=== PATIENT | female | born 1950 | race Caucasian/White ===

== ENCOUNTER 2017-05-14 11:27 | Outpatient (RCR) | payer OTHER ==
[~2017-05-14] VITALS: Ht 165.1 cm; Wt 78.8 kg
[~2017-05-14 11:27] MED LIST: ASPI-1267 PO; ASPI81TA94 PO; CHOL100052 PO; CHOL200022 PO; CHOL400T29 PO; DOC100 GT; DOCU-416 PO; FENO134C5 PO; FENO135C PO; FLU45SYR17 IM; FLU60SYR30 IM ONLY; GLUC100026 PO; GLUCOSAMINE; HYDR-2966 PO; LOR5 PO; METH1TAB65 PO; MULT-1335 PO; NIAC1TBM PO; OXYC-865 PO; POTA15TA PO; RAMI10CA62 PO; RAMI5CAP53 PO; SILV20CR2 TP; SIMV-44 PO; SIMV-54 PO; STOPPED ASA; TAM4 PO; TAMO20TA24 PO
[2017-05-14 11:42] VITALS: BP 112/64
[2017-05-14 11:47] LABS: PLATELET COUNT, AUTOMATED 226 K/uL (150-450)
--- NOTE | 2017-05-14 19:03 | ONCOLOGY FOLLOW UP NOTE ---
EVENT DATE: May 14, 2017 DIAGNOSES 1. Stage IA ([id number]) right invasive ductal carcinoma. 2. Osteoarthritis. 3. Osteopenia. 4. Prediabetes on diet control. 5. Hypertension. 6. Hypercholesterolemia. CHIEF COMPLAINT The patient is here today for followup of her right breast cancer. ONCOLOGY HISTORY The patient is a 65-year-old woman who had a hysterectomy in the past. The patient is doing very well currently. She is tolerating tamoxifen very well except for mild hot flashes. PRESENTATION Abnormal screening mammogram done on June 16, 2014 which showed a small focal area of increased density in the lateral portion of the right breast. Additional views on ultrasound showed hypoechoic nodule at 10 o'clock on the right breast. DIAGNOSTIC EVALUATION MRI of the breasts bilaterally done on July 03, 2014 showed suspicious lesion at 10 o'clock, right breast. PROCEDURE 1. Ultrasound guided core biopsy done on July 17, 2014. 2. Right wire-localization lumpectomy and right sentinel lymph node biopsy done July 27, 2014. PATHOLOGY The core biopsy was 0.7 to 1.5 cm in length, while the lumpectomy specimen showed a small nodule, 0.4 cm in the greatest dimension. Pathology was positive for invasive ductal carcinoma, grade I, ER positive 98.3%, [place] negative , Her2/kanchan 1+ by immunohistochemistry, which is negative. Oncotype DX testing showed a recurrent score result of 17, which is low risk. Three sentinel lymph nodes came back negative for metastases. STAGE Stage IA ([id number]). TREATMENT The patient was started on adjuvant hormonal therapy with tamoxifen on September 01, 2014. HISTORY OF PRESENT ILLNESS Patient is here today for follow up of her breast cancer, on tamoxifen adjuvant treatment. She is doing fine currently and she is totally asymptomatic. PAST MEDICAL HISTORY 1. Right breast cancer. 2. Osteoarthritis. 3. Bronchitis. 4. Type 2 diabetes on diet control. 5. Hypercholesterolemia. 6. Hypertension. PAST SURGICAL HISTORY 1. Tonsillectomy in 1957. 2. Tubal ligation in 1987. 3. Hysterectomy, vaginal, 1996. 4. Resection of cutaneous lymphoma 1997. 5. Surgical micro fracture, right knee, 2004. 6. Lymphocytoma cutis in 2008. 7. Stereotactic right breast biopsy for benign lesion in 2008. 8. Micro fracture of right knee with repair in 2010. 9. Removal of renal stone with stent placement in 2011. 10. Parathyroidectomy in 2011. 11. Fracture of left wrist in 2012. 12. Right breast biopsy July 17, 2014. 13. Right breast wire localization lumpectomy and right sentinel lymph node biopsy done on July 27, 2014. SOCIAL HISTORY The patient is . She has a son and daughter. 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 Denies any abuse of alcohol or drugs. She is smoking less than a pack a day for thirty years. FAMILY HISTORY Mother had liver cancer at the age of 82. Paternal grandfather had skin cancer and lymphoma. Sister with breast cancer at the age of sixty-four. Four first- line paternal cousins with breast cancer in their forties. Daughter of male paternal cousin with inflammatory breast cancer in her thirties. CURRENT MEDICATIONS 1. Baby aspirin 81 mg twice daily. 2. Ramipril 10 mg daily. 3. Glucosamine sulfate 1000 mg twice daily. 4. Hydrochlorothiazide 25 mg twice daily. 5. Potassium citrate 50 mEq daily. 6. Simvastatin 40 mg daily. 7. Tamoxifen 20 mg daily. ALLERGIES No known drug allergies. REVIEW OF SYSTEMS CONSTITUTIONAL: Patient has some hot flashes. HEENT: Ears: No tinnitus or hearing problem. Nose: No nasal discharge or epistaxis. Throat: No sore throat or mouth ulcers. Eyes: No diplopia or visual changes. RESPIRATORY: No shortness of breath. No cough, expectoration or hemoptysis. CARDIOVASCULAR: No chest pain, orthopnea, or paroxysmal nocturnal dyspnea (PND) . No edema. No palpitations. GASTROINTESTINAL: No nausea or vomiting. No diarrhea or constipation. No change in bowel movements. No heartburn or swallowing difficulties. No abdominal pain. No jaundice. No hematemesis, melena or rectal bleeding. GENITOURINARY: No hematuria or dysuria. MUSCULOSKELETAL: She has pain in her knees. NEUROLOGICAL: No tingling or numbness in the hands or feet. No headaches or convulsions. HEMATOLOGIC/LYMPHATIC: No bleeding or easy bruising. No weakness or fatigue. No enlarged lymph nodes. SKIN: No skin rash or lumps. PSYCHIATRIC: No anxiety or depression. PHYSICAL EXAMINATION GENERAL: Looks stable. Well-developed, well-nourished, and in no acute distress. VITAL SIGNS: Blood pressure 112/64, pulse 88 per minute, respirations 16 per minute, temperature 97, pulse ox 90% on room air. HEENT: Head: Atraumatic. No sinus tenderness to palpation. Eyes: No icterus or conjunctivitis. Mouth and throat: No oral thrush or mucositis. NECK: Supple. No cervical or supraclavicular lymphadenopathy. LUNGS: Clear to auscultation and percussion bilaterally. HEART: Regular rate and rhythm. No gallops, murmurs, clicks or rubs. ABDOMEN: Soft and lax. No tenderness. No hepatosplenomegaly. No masses. EXTREMITIES: No cyanosis, clubbing or edema. LYMPHATICS: No peripheral lymphadenopathy. NEUROLOGICAL: Conscious, alert and oriented times three. No focal motor or sensory deficits. PSYCHIATRIC: Mood and affect appear normal. SKIN: No skin rash, bruise or purpuric eruption. DIAGNOSTIC DATA CBC showed white count 7.3, hemoglobin 14.6, hematocrit 42, platelets 226,000. Chem panel totally normal except AST 55, ALT 83. Other parameters are normal. Potassium is 3.3. ASSESSMENT 1. Stage IA (pT1a pN0 cM0) right invasive ductal carcinoma status post wide localization lumpectomy and right sentinel lymph node biopsy done July 27, 2014 after core needle biopsy of the right breast mass done July 17, 2014. Final pathology was positive for 0.4 cm right breast nodule, grade 1/3 with negative margins. Three sentinel lymph nodes were negative for metastasis. ER positive , 98.3%, NV negative. HER2/kanchan was negative by immunohistochemistry. Oncotype DX testing showed recurrence score of 17, which is low risk. Patient started adjuvant hormonal therapy with tamoxifen 20 mg daily on September 01, 2014 and aromatase inhibitors were not prescribed because the patient could not afford the cost of the drug. Patient is tolerating treatment very well and she is doing very well currently. I am planning to see her again in four months with CBC, chem panel, CA 27-29 and DEXA scan at that time. 2. Osteopenia involving the lumbar spine, but the femoral neck and the left hip were normal. Her T score of the lumbar spine was -1.9. I am planning to repeat her DEXA scan with her next visit. 3. Vitamin D deficiency on vitamin D supplement, 4000 units daily. 4. Osteoarthritis of the knees, mainly the right knee. PLAN 1. Continue tamoxifen 20 mg daily. 2. Patient to return in four months with CBC, chem panel and CA 27-29 and DEXA scan. 3. Continue vitamin D 4000 units daily. 4. Patient to contact us for any new concerns or complaints. MTDD
== END 2017-05-15 09:11 | disposition home or self-care (01) ==
LOC: SPU 11:27
PROVIDERS: ATTEND Internal Medicine Hematology
DX: Z85.3 Personal history of malignant neoplasm of breast (principal); M85.88 Other specified disorders of bone density and structure, other site; E55.9 Vitamin D deficiency, unspecified; M17.11 Unilateral primary osteoarthritis, right knee; R73.03 Prediabetes; I10 Essential (primary) hypertension; E78.00 Pure hypercholesterolemia, unspecified; F17.210 Nicotine dependence, cigarettes, uncomplicated
CPT/HCPCS: 36415; 82040; 82247; 82310; 82374; 82435; 82565; 82947; 84075; 84132; 84155; 84295; 84450; 84460; 84520; 85025; 99212

== ENCOUNTER 2017-09-17 09:53 | Outpatient (RCR) | payer OTHER ==
[2017-09-17 10:11] VITALS: BP 127/96
[2017-09-17 10:15] LABS: PLATELET COUNT, AUTOMATED 228 K/uL (150-450)
--- NOTE | 2017-09-17 11:50 | RADIOLOGY IMAGING REPORT ---
FACILITY: [facility] PATIENT NAME: Melina Ceballos : 1950 MR: [id number] V: [id number] EXAM DATE: ORDERING PHYSICIAN: STEFANI AYON TECHNOLOGIST: Location: [facility] [place] Patient: Melina Ceballos : 1950 Visit/Account:[id number] Date of Sevice: 09/17/2017 DEXA Scan Clinical history: Osteopenia. Comparison: DEXA scan from 09/30/2016. LUMBAR SPINE: The bone mineral density (BMD) measured from L1-L4 correlates with a Z-score -0.9 and a T-score of - 2.0 which is osteopenia as defined by the World Health Organization. The corresponding risk of fract ure in the lumbar spine is increased compared with a young adult reference population. This value herrera s decrease by 1.1 % since the prior study. More than 5% change is considered significant. HIP: Bone mineral density (BMD) measured in the left femoral neck region correlates with a Z-score 0.4 and a T-score of -0.7 which is normal as defined by the World Health Organization. The corresponding risk of fracture in the hip is Not increased compared with a young adult reference population. The to gunjan hip value has increased by 0.6 % since the prior study. More than 5% change is considered signif icant. Bone mineral density (BMD) measured in the Femoral Neck region measures 0.934 g/cm2. IMPRESSION: 1. Lumbar spine: Osteopenia. There has been increased in the bone mineral density since the previou s exam. 2. Left femoral neck region: Normal. There has been increase in the bone mineral density of the tot al hip since the previous exam. 3. Femoral Neck: Bone Mineral Density is 0.934 g/cm2 The next DEXA scan of this patient should include the following sites: L1-L4 and the left hip. FRAX? WHO Fracture Risk Assessment Tool link: <http://www.shef.ac.uk/FRAX/tool.jsp?[email or web address]> PLEASE NOTE: 1) The World Health Organization defines low BMD as follows: T-score Normal > -1 Osteopenia < -1 and > -2.5 Osteoporosis < -2.5 without fractures Established osteoporosis < -2.5 with fractures 2) In general, you may wish to consider: Diagnosis Treatment Follow-up DEXA Normal BMD Prevention 2-3 years Osteopenia Prevention/therapy 1-2 years Osteoporosis Therapy Yearly 3) Fracture risk estimated from the T-score is more accurate for vertebral fractures (often spontane ous) than for hip fractures. Report Dictated By: Naeem Seymour at 09/17/2017 11:41 AM Report E-Signed By: Naeem Seymour at 09/17/2017 11:47 AM WSN:[email or web address]
--- NOTE | 2017-09-17 16:29 | ONCOLOGY FOLLOW UP NOTE ---
EVENT DATE: September 17, 2017 DIAGNOSES 1. Stage IA ([id number]) right invasive ductal carcinoma. 2. Osteoarthritis. 3. Osteopenia. 4. Prediabetes on diet control. 5. Hypertension. 6. Hypercholesterolemia. CHIEF COMPLAINT The patient is here today for followup of her right breast cancer. ONCOLOGY HISTORY The patient is a 65-year-old woman who had a hysterectomy in the past. The patient is doing very well currently. She is tolerating tamoxifen very well except for mild hot flashes. PRESENTATION Abnormal screening mammogram done on June 16, 2014 which showed a small focal area of increased density in the lateral portion of the right breast. Additional views on ultrasound showed hypoechoic nodule at 10 o'clock on the right breast. DIAGNOSTIC EVALUATION MRI of the breasts bilaterally done on July 03, 2014 showed suspicious lesion at 10 o'clock, right breast. PROCEDURE 1. Ultrasound guided core biopsy done on July 17, 2014. 2. Right wire-localization lumpectomy and right sentinel lymph node biopsy done July 27, 2014. PATHOLOGY The core biopsy was 0.7 to 1.5 cm in length, while the lumpectomy specimen showed a small nodule, 0.4 cm in the greatest dimension. Pathology was positive for invasive ductal carcinoma, grade I, ER positive 98.3%, [place] negative , Her2/kanchan 1+ by immunohistochemistry, which is negative. Oncotype DX testing showed a recurrent score result of 17, which is low risk. Three sentinel lymph nodes came back negative for metastases. STAGE Stage IA ([id number]). TREATMENT The patient was started on adjuvant hormonal therapy with tamoxifen on September 01, 2014. HISTORY OF PRESENT ILLNESS Patient is here today for follow up of her right breast cancer on adjuvant hormonal therapy with tamoxifen. She is doing fine currently except for hot flashes. She continues to have pain in her knees which is chronic, but stable. PAST MEDICAL HISTORY 1. Right breast cancer. 2. Osteoarthritis. 3. Bronchitis. 4. Type 2 diabetes on diet control. 5. Hypercholesterolemia. 6. Hypertension. PAST SURGICAL HISTORY 1. Tonsillectomy in 1957. 2. Tubal ligation in 1987. 3. Hysterectomy, vaginal, 1996. 4. Resection of cutaneous lymphoma 1997. 5. Surgical micro fracture, right knee, 2004. 6. Lymphocytoma cutis in 2008. 7. Stereotactic right breast biopsy for benign lesion in 2008. 8. Micro fracture of right knee with repair in 2010. 9. Removal of renal stone with stent placement in 2011. 10. Parathyroidectomy in 2011. 11. Fracture of left wrist in 2012. 12. Right breast biopsy July 17, 2014. 13. Right breast wire localization lumpectomy and right sentinel lymph node biopsy done on July 27, 2014. SOCIAL HISTORY The patient is . She has a son and daughter. 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 Denies any abuse of alcohol or drugs. She is smoking less than a pack a day for thirty years. FAMILY HISTORY Mother had liver cancer at the age of 82. Paternal grandfather had skin cancer and lymphoma. Sister with breast cancer at the age of sixty-four. Four first- line paternal cousins with breast cancer in their forties. Daughter of male paternal cousin with inflammatory breast cancer in her thirties. CURRENT MEDICATIONS 1. Baby aspirin 81 mg twice daily. 2. Ramipril 10 mg daily. 3. Glucosamine sulfate 1000 mg twice daily. 4. Hydrochlorothiazide 25 mg twice daily. 5. Potassium citrate 50 mEq daily. 6. Simvastatin 40 mg daily. 7. Tamoxifen 20 mg daily. ALLERGIES No known drug allergies. REVIEW OF SYSTEMS CONSTITUTIONAL: Patient has hot flashes. HEENT: Ears: No tinnitus or hearing problem. Nose: No nasal discharge or epistaxis. Throat: No sore throat or mouth ulcers. Eyes: No diplopia or visual changes. RESPIRATORY: No shortness of breath. No cough, expectoration or hemoptysis. CARDIOVASCULAR: No chest pain, orthopnea, or paroxysmal nocturnal dyspnea (PND) . No edema. No palpitations. GASTROINTESTINAL: No nausea or vomiting. No diarrhea or constipation. No change in bowel movements. No heartburn or swallowing difficulties. No abdominal pain. No jaundice. No hematemesis, melena or rectal bleeding. GENITOURINARY: No hematuria or dysuria. MUSCULOSKELETAL: She has pain in her knees which is chronic. NEUROLOGICAL: No tingling or numbness in the hands or feet. No headaches or convulsions. HEMATOLOGIC/LYMPHATIC: No bleeding or easy bruising. No weakness or fatigue. No enlarged lymph nodes. SKIN: No skin rash or lumps. PSYCHIATRIC: No anxiety or depression. PHYSICAL EXAMINATION GENERAL: Looks stable. Well-developed, well-nourished, and in no acute distress. VITAL SIGNS: Blood pressure 127/96, pulse 100 per minute, temperature 98.1, pulse ox 91% on room air. HEENT: Head: Atraumatic. No sinus tenderness to palpation. Eyes: No icterus or conjunctivitis. Mouth and throat: No oral thrush or mucositis. NECK: Supple. No cervical or supraclavicular lymphadenopathy. LUNGS: Clear to auscultation and percussion bilaterally. HEART: Regular rate and rhythm. No gallops, murmurs, clicks or rubs. ABDOMEN: Soft and lax. No tenderness. No hepatosplenomegaly. No masses. EXTREMITIES: No cyanosis, clubbing or edema. LYMPHATICS: No peripheral lymphadenopathy. NEUROLOGICAL: Conscious, alert and oriented times three. No focal motor or sensory deficits. PSYCHIATRIC: Mood and affect appear normal. SKIN: No skin rash, bruise or purpuric eruption. DIAGNOSTIC DATA CBC showed white count 5.4, hemoglobin 15.9, hematocrit 45, platelets 228,000. Chem panel totally normal except blood sugar 134, AST 43, potassium 2.8. Her CA 27-29 is pending. ASSESSMENT 1. Stage IA (pT1a pN0 cM0) right invasive ductal carcinoma status post wide localization lumpectomy and right sentinel lymph node biopsy done July 27, 2014 after core needle biopsy of the right breast mass done July 17, 2014. Final pathology was positive for 0.4 cm right breast nodule, grade 1/3 with negative margins. Three sentinel lymph nodes were negative for metastasis. ER was positive, 98.3%, [place] negative. HER2/kanchan was negative by immunohistochemistry. Oncotype DX testing showed recurrence score of 17, which is low risk. Patient started adjuvant hormonal therapy with tamoxifen 20 mg daily on September 01, 2014 and aromatase inhibitors were not prescribed because the patient could not afford the cost of the drug. Patient is tolerating treatment very well except for some hot flashes. She is currently in complete remission. I am planning to see her again in four months with CBC, chem panel and CA 27-29 at that time. 2. Hypokalemia from hydrochlorothiazide use for treatment of her hypertension. Patient did not have her potassium supplement for some time because of the change of her primary care physicians. I will refill her potassium tablets. 3. Vitamin D deficiency on vitamin D supplement, 4000 units daily. 4. Osteoarthritis of the knees, mainly the right knee. 5. Osteopenia of the lumbar spine, but the femoral neck and the left hip were normal. Her T-score of the lumbar spine was -1.9. Repeat DEXA scan on September 17, 2017 showed osteopenia, but the bone mineral density is increased since her previous scan. I am planning to continue the same treatment. PLAN 1. Continue tamoxifen 20 mg daily. 2. Patient to return in four months with CBC, chem panel and CA 27-29. 3. Check mammogram on December 25, 2017. 4. Continue vitamin D 4000 units daily. 5. Patient to contact us for any new concern or complaints. ROCIO
== END 2017-10-06 10:34 | disposition home or self-care (01) ==
LOC: SPU 09:53
PROVIDERS: ATTEND Internal Medicine Hematology
DX: C50.911 Malignant neoplasm of unspecified site of right female breast (principal); Z79.810 Long term (current) use of selective estrogen receptor modulators (SERMs); E87.6 Hypokalemia; E55.9 Vitamin D deficiency, unspecified; M17.0 Bilateral primary osteoarthritis of knee; M85.88 Other specified disorders of bone density and structure, other site; R73.03 Prediabetes; I10 Essential (primary) hypertension; E78.00 Pure hypercholesterolemia, unspecified
CPT/HCPCS: 36415; 77080; 82040; 82247; 82310; 82374; 82435; 82565; 82947; 84075; 84132; 84155; 84295; 84450; 84460; 84520; 85025; 86300; 99212

== ENCOUNTER → 2017-10-26 | Outpatient (CLI) | payer MEDICARE, OTHER ==
[~2017-10-26] MED LIST changes: +POTC540 PO
== END ==
LOC: LAB 13:58
PROVIDERS: ATTEND Emergency Medicine
DX: E78.5 Hyperlipidemia, unspecified (principal); E55.9 Vitamin D deficiency, unspecified; I10 Essential (primary) hypertension; R74.8 Abnormal levels of other serum enzymes
CPT/HCPCS: 36415; 82306; 82310; 82374; 82435; 82465; 82565; 82947; 83540; 83550; 83718; 84132; 84295; 84478; 84520

== ENCOUNTER → 2017-11-03 | Outpatient (CLI) | payer MEDICARE, OTHER ==
--- NOTE | 2017-11-03 16:17 | RADIOLOGY IMAGING REPORT ---
FACILITY: [facility] [place] PATIENT NAME: Melina Ceballos : 1950 MR: [id number] V: [id number] EXAM DATE: ORDERING PHYSICIAN: DAVE RYAN TECHNOLOGIST: Location: [facility] Patient: Melina Ceballos : 1950 Visit/Account:[id number] Date of Sevice: 11/03/2017 LIVER HISTORY: Elevated liver enzymes ADDITIONAL HISTORY: None. COMPARISON: Comparison made to prior chest CT on 09/11/2015. FINDINGS: Liver: Liver demonstrates homogenous increased echogenicity compatible with fatty infiltration. On p revious noncontrast CT scan the liver measured 40 Hounsfield units was which was borderline. I suspe ct there is been interval progression of steatosis since that time. There are at least five small cy sts in the liver, the largest measuring 2.2 cm maximum dimension. Largest measured hepatic cysts in August was 1.8 cm diameter centimeter dense slight interval enlargement. Gallbladder: Several tiny mobile stones are seen in the gallbladder. Gallbladder wall is normal. N egative sonographic Watson's sign. Common duct: 4.1 mm diameter. Pancreas: Pancreas unremarkable appearance. Right kidney: Right kidney morphologically normal and measures 10.6 cm in length. Upper abdominal aorta and IVC: Patent. Ascites: None visualized. IMPRESSION: Cholelithiasis Hepatic steatosis which is probably progressed since 2016. Multiple small hepatic cysts, possible slight interval enlargement since 2016.. Report Dictated By: Keith Huffman MD at 11/03/2017 3:56 PM Report E-Signed By: Keith Huffman MD at 11/03/2017 4:13 PM WSN:[email or web address]
== END ==
LOC: US 01:27
PROVIDERS: ATTEND Emergency Medicine
DX: K76.0 Fatty (change of) liver, not elsewhere classified (principal); Q44.6 Cystic disease of liver
CPT/HCPCS: 76705

== ENCOUNTER → 2017-12-17 | Outpatient (CLI) | payer MEDICARE, OTHER ==
[2017-12-17 09:55] LABS: LDL CHOLESTEROL 23 mg/dl
== END ==
LOC: LAB 09:03
PROVIDERS: ATTEND Emergency Medicine
DX: E78.5 Hyperlipidemia, unspecified (principal); K76.0 Fatty (change of) liver, not elsewhere classified
CPT/HCPCS: 36415; 82040; 82247; 82248; 82310; 82374; 82435; 82465; 82565; 82947; 83718; 84075; 84132; 84155; 84295; 84450; 84460; 84478; 84520

== ENCOUNTER 2018-01-14 11:30 | Outpatient (RCR) | payer MEDICARE, OTHER ==
[~2018-01-14 11:30] MED LIST changes: +CHOL200018 PO; -CHOL200022 PO; +RAMI10CA9 PO; -RAMI5CAP53 PO; +RAMI5CAP7 PO
[2018-01-14 11:55] LABS: PLATELET COUNT, AUTOMATED 242 K/uL (150-450)
[2018-01-14 12:39] VITALS: BP 133/72
--- NOTE | 2018-01-14 17:50 | ONCOLOGY FOLLOW UP NOTE ---
EVENT DATE: January 14, 2018 DIAGNOSES 1. Stage IA ([id number]) right invasive ductal carcinoma. 2. Osteoarthritis. 3. Osteopenia. 4. Prediabetes on diet control. 5. Hypertension. 6. Hypercholesterolemia. CHIEF COMPLAINT The patient is here today for followup of her right breast cancer. ONCOLOGY HISTORY The patient is a 67-year-old woman who had a hysterectomy in the past. The patient is doing very well currently. She is tolerating tamoxifen very well except for mild hot flashes. PRESENTATION Abnormal screening mammogram done on June 16, 2014 which showed a small focal area of increased density in the lateral portion of the right breast. Additional views on ultrasound showed hypoechoic nodule at 10 o'clock on the right breast. DIAGNOSTIC EVALUATION MRI of the breasts bilaterally done on July 03, 2014 showed suspicious lesion at 10 o'clock, right breast. PROCEDURE 1. Ultrasound guided core biopsy done on July 17, 2014. 2. Right wire-localization lumpectomy and right sentinel lymph node biopsy done July 27, 2014. PATHOLOGY The core biopsy was 0.7 to 1.5 cm in length, while the lumpectomy specimen showed a small nodule, 0.4 cm in the greatest dimension. Pathology was positive for invasive ductal carcinoma, grade I, ER positive 98.3%, UT negative, Her2/kanchan 1+ by immunohistochemistry, which is negative. Oncotype DX testing showed a recurrent score result of 17, which is low risk. Three sentinel lymph nodes came back negative for metastases. STAGE Stage IA ([id number]). TREATMENT The patient was started on adjuvant hormonal therapy with tamoxifen on September 01, 2014. HISTORY OF PRESENT ILLNESS Patient is here today for follow up of her right breast cancer on adjuvant hormonal therapy with tamoxifen. Patient is really doing very well currently. Apart from having arthritis with pain in her knees and hips, the patient does not have any other problem. PAST MEDICAL HISTORY 1. Right breast cancer. 2. Osteoarthritis. 3. Bronchitis. 4. Type 2 diabetes on diet control. 5. Hypercholesterolemia. 6. Hypertension. PAST SURGICAL HISTORY 1. Tonsillectomy in 1957. 2. Tubal ligation in 1987. 3. Hysterectomy, vaginal, 1996. 4. Resection of cutaneous lymphoma 1997. 5. Surgical micro fracture, right knee, 2004. 6. Lymphocytoma cutis in 2008. 7. Stereotactic right breast biopsy for benign lesion in 2008. 8. Micro fracture of right knee with repair in 2010. 9. Removal of renal stone with stent placement in 2011. 10. Parathyroidectomy in 2011. 11. Fracture of left wrist in 2012. 12. Right breast biopsy July 17, 2014. 13. Right breast wire localization lumpectomy and right sentinel lymph node biopsy done on July 27, 2014. SOCIAL HISTORY The patient is . She has a son and daughter. 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 Denies any abuse of alcohol or drugs. She is smoking less than a pack a day for thirty years. FAMILY HISTORY Mother had liver cancer at the age of 82. Paternal grandfather had skin cancer and lymphoma. Sister with breast cancer at the age of sixty-four. Four first- line paternal cousins with breast cancer in their forties. Daughter of male paternal cousin with inflammatory breast cancer in her thirties. CURRENT MEDICATIONS 1. Baby aspirin 81 mg twice daily. 2. Ramipril 10 mg daily. 3. Glucosamine sulfate 1000 mg twice daily. 4. Hydrochlorothiazide 25 mg twice daily. 5. Potassium citrate 50 mEq daily. 6. Simvastatin 40 mg daily. 7. Tamoxifen 20 mg daily. ALLERGIES No known drug allergies. REVIEW OF SYSTEMS CONSTITUTIONAL: No appetite or weight change. No fever, chills or sweating. No recent infection. HEENT: Ears: No tinnitus or hearing problem. Nose: No nasal discharge or epistaxis. Throat: No sore throat or mouth ulcers. Eyes: No diplopia or visual changes. RESPIRATORY: No shortness of breath. No cough, expectoration or hemoptysis. CARDIOVASCULAR: No chest pain, orthopnea, or paroxysmal nocturnal dyspnea (PND). No edema. No palpitations. GASTROINTESTINAL: No nausea or vomiting. No diarrhea or constipation. No change in bowel movements. No heartburn or swallowing difficulties. No abdominal pain. No jaundice. No hematemesis, melena or rectal bleeding. GENITOURINARY: No hematuria or dysuria. MUSCULOSKELETAL: She has pain in the knees and hips. NEUROLOGICAL: No tingling or numbness in the hands or feet. No headaches or convulsions. HEMATOLOGIC/LYMPHATIC: No bleeding or easy bruising. No weakness or fatigue. No enlarged lymph nodes. SKIN: No skin rash or lumps. PSYCHIATRIC: No anxiety or depression. PHYSICAL EXAMINATION GENERAL: Looks stable. Well-developed, well-nourished, and in no acute distress. VITAL SIGNS: Blood pressure 133/72, pulse 70 per minute, respirations 16 per minute, temperature 97.8, pulse ox 88% on room air. HEENT: Head: Atraumatic. No sinus tenderness to palpation. Eyes: No icterus or conjunctivitis. Mouth and throat: No oral thrush or mucositis. NECK: Supple. No cervical or supraclavicular lymphadenopathy. LUNGS: Clear to auscultation and percussion bilaterally. HEART: Regular rate and rhythm. No gallops, murmurs, clicks or rubs. ABDOMEN: Soft and lax. No tenderness. No hepatosplenomegaly. No masses. EXTREMITIES: No cyanosis, clubbing or edema. LYMPHATICS: No peripheral lymphadenopathy. NEUROLOGICAL: Conscious, alert and oriented times three. No focal motor or sensory deficits. PSYCHIATRIC: Mood and affect appear normal. SKIN: No skin rash, bruise or purpuric eruption. DIAGNOSTIC DATA CBC showed white count 5.8, hemoglobin 15.8, hematocrit 46, platelets 242,000. Chem panel is normal. 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 ASSESSMENT 1. Stage IA (pT1a pN0 cM0) right invasive ductal carcinoma status post wide localization lumpectomy and right sentinel lymph node biopsy done July 27, 2014 after core needle biopsy of the right breast mass done July 17, 2014. Final pathology was positive for 0.4 cm right breast nodule, grade 1/3 with negative margins. Three sentinel lymph nodes were negative for metastasis. ER was positive, 98.3%, UT negative. HER2/kanchan was negative by immunohistochemistry. Oncotype DX testing showed recurrence score of 17, which is low risk. Patient started adjuvant hormonal therapy with tamoxifen 20 mg daily on September 01, 2014 and aromatase inhibitors were not prescribed because the patient could not afford the cost of the drug. Patient is tolerating treatment very well except for some hot flashes. She is currently in complete remission. I am planning to see her again in four months with CBC, chem panel and CA 27-29. Her last CA 27-29 was normal at 25.7. 2. Hypokalemia from hydrochlorothiazide. Patient took potassium supplement for that. 3. Vitamin D deficiency, currently on vitamin D supplement, 4000 units daily. 4. Osteoarthritis of the knees, mainly the right knee. 5. Osteopenia of the lumbar spine, but the left hip and femoral neck were normal. Her T-score of the lumbar spine was -1.9. Repeat DEXA scan on September 17, 2017 showed osteopenia, but the bone mineral density is increased since the previous scan. We will continue the same treatment. PLAN 1. Continue tamoxifen 20 mg daily. 2. Patient to return in four months with CBC, chem panel and CA 27-29. 3. The patient is scheduled for her mammogram next week. 4. Continue vitamin D 4000 units daily. 5. Patient to contact us for any new concerns or complaints. LILLIED
== END 2018-02-24 08:36 | disposition home or self-care (01) ==
LOC: SPU 11:30
PROVIDERS: ATTEND Internal Medicine Hematology
DX: C50.911 Malignant neoplasm of unspecified site of right female breast (principal); Z79.810 Long term (current) use of selective estrogen receptor modulators (SERMs); E87.6 Hypokalemia; E55.9 Vitamin D deficiency, unspecified; M17.0 Bilateral primary osteoarthritis of knee; M85.88 Other specified disorders of bone density and structure, other site; R73.03 Prediabetes; I10 Essential (primary) hypertension; E78.00 Pure hypercholesterolemia, unspecified; E11.9 Type 2 diabetes mellitus without complications; F17.210 Nicotine dependence, cigarettes, uncomplicated; Z79.899 Other long term (current) drug therapy
CPT/HCPCS: 36415; 85025; 86300; G0463; 82040; 82247; 82310; 82374; 82435; 82565; 82947; 84075; 84132; 84155; 84295; 84450; 84460; 84520; 99212

== ENCOUNTER → 2018-01-21 | Outpatient (CLI) | payer MEDICARE, OTHER ==
--- NOTE | 2018-01-22 08:14 | RADIOLOGY IMAGING REPORT ---
FACILITY: [facility] - [place] PATIENT NAME: NEO VELIZ : [id number] MR: [id number] V: [id number] EXAM DATE: [id number] ORDERING PHYSICIAN: STEFANI AYON TECHNOLOGIST: Tamy Freitas PROCEDURE:BILATERAL DIGITAL SCREENING MAMMOGRAM WITH CAD ASSISTED INTERPRETATION & 3D TOMOSYNTHESIS COMPARISON:Prior mammograms 12/24/16, 08/22/16, 05/29/16, 08/03/15, 02/01/15. INDICATIONS:SCREENING FINDINGS: Dense heterogeneous fibroglandular tissue is seen throughout the breasts. The parenchymal pattern has remained stable allowing for difference in mammographic technique & patient positioning. Post surgical scaring in the upper outer quadrant of the Right breast from previous lumpectomy and skin thickening over the Right breast from prior radiation therapy again seen. There is a biopsy clip in the medial inferior portion of the Right breast. There is no evidence of malignant appearing mass, malignant appearing calcifications or other secondary sign of malignancy in either breast. DIAGNOSTIC CATEGORY 2--BENIGN FINDING. RECOMMENDATIONS: ROUTINE MAMMOGRAM AND CLINICAL EVALUATION. IMPRESSION: BIRADS 2: Benign finding. No significant abnormality is identified at this time. Dictated by: Imelda Kelly M.D. on 01/21/2018 at 15:55 Transcribed by: BRICE on 01/21/2018 at 16:09 Approved by: Imelda Kelly M.D. on 01/22/2018 at 8:12 [facility]
== END ==
LOC: MAMO 00:49
PROVIDERS: ATTEND Internal Medicine Hematology
DX: Z12.31 Encounter for screening mammogram for malignant neoplasm of breast (principal)
CPT/HCPCS: 77063; 77067

== ENCOUNTER 2018-05-20 09:49 | Outpatient (RCR) | payer MEDICARE, OTHER ==
[2018-05-20 09:55] VITALS: BP 121/71
[2018-05-20 10:11] VITALS: BP 121/71
[2018-05-20 10:13] LABS: PLATELET COUNT, AUTOMATED 249 K/uL (150-450)
--- NOTE | 2018-05-20 13:26 | [facility] ONCOLOGY NOTE ---
EVENT DATE: May 20, 2018 DIAGNOSES 1. Stage IA ([id number]) right invasive ductal carcinoma. 2. Osteoarthritis. 3. Osteopenia. 4. Prediabetes on diet control. 5. Hypertension. 6. Hypercholesterolemia. CHIEF COMPLAINT The patient is here today for followup of her right breast cancer. ONCOLOGY HISTORY The patient is a 67-year-old woman who had a hysterectomy in the past. The patient is doing very well currently. She is tolerating tamoxifen very well except for mild hot flashes. PRESENTATION Abnormal screening mammogram done on June 16, 2014 which showed a small focal area of increased density in the lateral portion of the right breast. Additional views on ultrasound showed hypoechoic nodule at 10 o'clock on the right breast. DIAGNOSTIC EVALUATION MRI of the breasts bilaterally done on July 03, 2014 showed suspicious lesion at 10 o'clock, right breast. PROCEDURE 1. Ultrasound guided core biopsy done on July 17, 2014. 2. Right wire-localization lumpectomy and right sentinel lymph node biopsy done July 27, 2014. PATHOLOGY The core biopsy was 0.7 to 1.5 cm in length, while the lumpectomy specimen showed a small nodule, 0.4 cm in the greatest dimension. Pathology was positive for invasive ductal carcinoma, grade I, ER positive 98.3%, SD negative, Her2/kanchan 1+ by immunohistochemistry, which is negative. Oncotype DX testing showed a recurrent score result of 17, which is low risk. Three sentinel lymph nodes came back negative for metastases. STAGE Stage IA ([id number]). TREATMENT The patient was started on adjuvant hormonal therapy with tamoxifen on September 01, 2014. HISTORY OF PRESENT ILLNESS Patient is here today for followup of her right breast cancer, on adjuvant hormonal therapy with tamoxifen. She has some hot flashes and pain in her knees but other than that her general condition is very good and stable. PAST MEDICAL HISTORY 1. Right breast cancer. 2. Osteoarthritis. 3. Bronchitis. 4. Type 2 diabetes on diet control. 5. Hypercholesterolemia. 6. Hypertension. PAST SURGICAL HISTORY 1. Tonsillectomy in 1957. 2. Tubal ligation in 1987. 3. Hysterectomy, vaginal, 1996. 4. Resection of cutaneous lymphoma 1997. 5. Surgical micro fracture, right knee, 2004. 6. Lymphocytoma cutis in 2008. 7. Stereotactic right breast biopsy for benign lesion in 2008. 8. Micro fracture of right knee with repair in 2010. 9. Removal of renal stone with stent placement in 2011. 10. Parathyroidectomy in 2011. 11. Fracture of left wrist in 2012. 12. Right breast biopsy July 17, 2014. 13. Right breast wire localization lumpectomy and right sentinel lymph node biopsy done on July 27, 2014. SOCIAL HISTORY The patient is . She has a son and daughter. 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 Denies any abuse of alcohol or drugs. She is smoking less than a pack a day for thirty years. FAMILY HISTORY Mother had liver cancer at the age of 82. Paternal grandfather had skin cancer and lymphoma. Sister with breast cancer at the age of sixty-four. Four first- line paternal cousins with breast cancer in their forties. Daughter of male paternal cousin with inflammatory breast cancer in her thirties. CURRENT MEDICATIONS 1. Baby aspirin 81 mg twice daily. 2. Ramipril 10 mg daily. 3. Glucosamine sulfate 1000 mg twice daily. 4. Hydrochlorothiazide 25 mg twice daily. 5. Potassium citrate 50 mEq daily. 6. Simvastatin 40 mg daily. 7. Tamoxifen 20 mg daily. ALLERGIES No known drug allergies. REVIEW OF SYSTEMS CONSTITUTIONAL: Patient has hot flashes. HEENT: Ears: No tinnitus or hearing problem. Nose: No nasal discharge or epistaxis. Throat: No sore throat or mouth ulcers. Eyes: No diplopia or visual changes. RESPIRATORY: No shortness of breath. No cough, expectoration or hemoptysis. CARDIOVASCULAR: No chest pain, orthopnea, or paroxysmal nocturnal dyspnea (PND). No edema. No palpitations. GASTROINTESTINAL: No nausea or vomiting. No diarrhea or constipation. No change in bowel movements. No heartburn or swallowing difficulties. No abdominal pain. No jaundice. No hematemesis, melena or rectal bleeding. GENITOURINARY: No hematuria or dysuria. MUSCULOSKELETAL: She has pain in the knees. NEUROLOGICAL: No tingling or numbness in the hands or feet. No headaches or convulsions. HEMATOLOGIC/LYMPHATIC: No bleeding or easy bruising. No weakness or fatigue. No enlarged lymph nodes. SKIN: No skin rash or lumps. PSYCHIATRIC: No anxiety or depression. PHYSICAL EXAMINATION GENERAL: Looks stable. Well-developed, well-nourished, and in no acute distress. VITAL SIGNS: Blood pressure 121/71, pulse 90 per minute, respirations 16 per minute, temperature 97.6, pulse ox 93% on room air. HEENT: Head: Atraumatic. No sinus tenderness to palpation. Eyes: No icterus or conjunctivitis. Mouth and throat: No oral thrush or mucositis. NECK: Supple. No cervical or supraclavicular lymphadenopathy. LUNGS: Clear to auscultation and percussion bilaterally. HEART: Regular rate and rhythm. No gallops, murmurs, clicks or rubs. ABDOMEN: Soft and lax. No tenderness. No hepatosplenomegaly. No masses. EXTREMITIES: No cyanosis, clubbing or edema. LYMPHATICS: No peripheral lymphadenopathy. NEUROLOGICAL: Conscious, alert and oriented times three. No focal motor or sensory deficits. PSYCHIATRIC: Mood and affect appear normal. SKIN: No skin rash, bruise or purpuric eruption. DIAGNOSTIC DATA CBC showed white count 6.9, hemoglobin 15.5, hematocrit 45.2, platelets 249,000. Chem panel is totally normal except chloride 111, BUN 19. 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 ASSESSMENT 1. Stage IA (pT1a pN0 cM0) right invasive ductal carcinoma status post wide localization lumpectomy and right sentinel lymph node biopsy done July 27, 2014, after core needle biopsy of the right breast mass done July 17, 2014. Final pathology was positive for 0.4 cm right breast nodule, grade 1/3 with negative margins. Three sentinel lymph nodes were negative for metastasis. ER was positive, 38.3%, SD negative. HER2/kanchan was negative by immunohistochemistry. Oncotype DX testing showed recurrent score of 17, which is low risk. Patient started adjuvant hormonal therapy with tamoxifen 20 mg daily on September 01, 2014, and aromatase inhibitors were not prescribed because of the cost and patient could not afford the rose of the drug. Patient really is doing very well with her treatment currently. Apart from having hot flashes, patient does not have any other problem. She is currently in complete remission. I am planning to see her again in four months with CBC, chem panel, CA 27-29. 2. Vitamin D deficiency, on vitamin D supplement 4000 units daily. 3. Osteoarthritis of the knees, mainly right knee. 4. Osteopenia of the lumbar spine but the left hip and femoral neck were normal. Her T-score of the lumbar spine was -1.9. Repeat DEXA scan on September 17, 2017, showed osteopenia but the bone mineral density has increased since the previous scan. We will continue the same treatment currently. PLAN 1. Continue tamoxifen 20 mg daily. 2. Patient to return in four months with CBC, chem panel and CA 27-29. 3. The patient to continue vitamin D 4000 units daily. 5. Patient to contact us for any new concerns or complaints. MTDD
[2018-07-26] MEDS ORDERED: SIMV-54 PO (09:34)
== END 2018-08-17 ==
LOC: SPU 09:49
PROVIDERS: ATTEND Internal Medicine Hematology
DX: C50.911 Malignant neoplasm of unspecified site of right female breast (principal); Z79.810 Long term (current) use of selective estrogen receptor modulators (SERMs); E87.6 Hypokalemia; E55.9 Vitamin D deficiency, unspecified; M17.0 Bilateral primary osteoarthritis of knee; M85.88 Other specified disorders of bone density and structure, other site; R73.03 Prediabetes; I10 Essential (primary) hypertension; E78.00 Pure hypercholesterolemia, unspecified; F17.210 Nicotine dependence, cigarettes, uncomplicated; Z79.899 Other long term (current) drug therapy
CPT/HCPCS: 36415; 85025; 86300; G0463; 82040; 82247; 82310; 82374; 82435; 82565; 82947; 84075; 84132; 84155; 84295; 84450; 84460; 84520; 99212

== ENCOUNTER → 2018-08-10 | Outpatient (CLI) | payer MEDICARE, OTHER ==
[2018-08-10 12:04] LABS: PLATELET COUNT, AUTOMATED 262 K/uL (150-450)
== END ==
LOC: LAB 11:35
PROVIDERS: ATTEND Emergency Medicine
DX: I10 Essential (primary) hypertension (principal); E55.9 Vitamin D deficiency, unspecified
CPT/HCPCS: 36415; 82040; 82247; 82306; 82310; 82374; 82435; 82465; 82565; 82947; 83718; 84075; 84132; 84155; 84295; 84450; 84460; 84478; 84520; 85025

== ENCOUNTER 2018-09-09 09:45 | Outpatient (RCR) | payer MEDICARE, OTHER ==
[2018-09-09 10:34] LABS: PLATELET COUNT, AUTOMATED 266 K/uL (150-450)
[2018-09-09 13:38] VITALS: BP 137/66
--- NOTE | 2018-09-10 01:05 | EL-TARAB[facility] ONCOLOGY NOTE ---
EVENT DATE: September 09, 2018 DIAGNOSES 1. Stage IA (pT1a pN0 cM0) right invasive ductal carcinoma. 2. Osteoarthritis. 3. Osteopenia. 4. Prediabetes on diet control. 5. Hypertension. 6. Hypercholesterolemia. CHIEF COMPLAINT The patient is here today for followup of her right breast cancer. ONCOLOGY HISTORY The patient is a 67-year-old woman who had a hysterectomy in the past. The patient is doing very well currently. She is tolerating tamoxifen very well except for mild hot flashes. PRESENTATION Abnormal screening mammogram done on June 16, 2014, which showed a small focal area of increased density in the lateral portion of the right breast. Additional views on ultrasound showed hypoechoic nodule at 10 o'clock on the right breast. DIAGNOSTIC EVALUATION MRI of the breasts bilaterally done on July 03, 2014, showed suspicious lesion at 10 o'clock, right breast. PROCEDURE 1. Ultrasound-guided core biopsy done on July 17, 2014. 2. Right wire-localization lumpectomy and right sentinel lymph node biopsy done July 27, 2014. PATHOLOGY The core biopsy was 0.7 to 1.5 cm in length, while the lumpectomy specimen showed a small nodule, 0.4 cm in the greatest dimension. Pathology was positive for invasive ductal carcinoma, grade I, ER positive 98.3%, NM negative, Her2/kanchan 1+ by immunohistochemistry, which is negative. Oncotype DX testing showed a recurrent score result of 17, which is low risk. Three sentinel lymph nodes came back negative for metastases. STAGE Stage IA ([id number]). TREATMENT The patient was started on adjuvant hormonal therapy with tamoxifen on September 01, 2014. HISTORY OF PRESENT ILLNESS Patient is here today for followup of her right breast cancer, on adjuvant hormonal therapy with tamoxifen. Patient is complaining of some hot flashes. She has also right knee pain, and the patient is going to have knee replacement on 05 October 2018. Other than that, she is doing really very well. PAST MEDICAL HISTORY 1. Right breast cancer. 2. Osteoarthritis. 3. Bronchitis. 4. Type 2 diabetes on diet control. 5. Hypercholesterolemia. 6. Hypertension. PAST SURGICAL HISTORY 1. Tonsillectomy in 1957. 2. Tubal ligation in 1987. 3. Hysterectomy, vaginal, 1996. 4. Resection of cutaneous lymphoma, 1997. 5. Surgical microfracture, right knee, 2004. 6. Lymphocytoma cutis in 2008. 7. Stereotactic right breast biopsy for benign lesion in 2008. 8. Micro fracture of right knee with repair in 2010. 9. Removal of renal stone with stent placement in 2011. 10. Parathyroidectomy in 2011. 11. Fracture of left wrist in 2012. 12. Right breast biopsy July 17, 2014. 13. Right breast wire-localization lumpectomy and right sentinel lymph node biopsy done on July 27, 2014. SOCIAL HISTORY The patient is . She has a son and daughter. 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 Denies any abuse of alcohol or drugs. She is smoking less than a pack a day for thirty years. FAMILY HISTORY Mother had liver cancer at the age of 82. Paternal grandfather had skin cancer and lymphoma. Sister with breast cancer at the age of sixty-four. Four first- line paternal cousins with breast cancer in their forties. Daughter of male paternal cousin with inflammatory breast cancer in her thirties. CURRENT MEDICATIONS 1. Baby aspirin 81 mg twice daily. 2. Ramipril 10 mg daily. 3. Glucosamine sulfate 1000 mg twice daily. 4. Hydrochlorothiazide 25 mg twice daily. 5. Potassium citrate 50 mEq daily. 6. Simvastatin 40 mg daily. 7. Tamoxifen 20 mg daily. ALLERGIES No known drug allergies. REVIEW OF SYSTEMS CONSTITUTIONAL: She has hot flashes. HEENT: Ears: No tinnitus or hearing problem. Nose: No nasal discharge or epistaxis. Throat: No sore throat or mouth ulcers. Eyes: No diplopia or visual changes. RESPIRATORY: No shortness of breath. No cough, expectoration or hemoptysis. CARDIOVASCULAR: No chest pain, orthopnea, or paroxysmal nocturnal dyspnea (PND). No edema. No palpitations. GASTROINTESTINAL: No nausea or vomiting. No diarrhea or constipation. No change in bowel movements. No heartburn or swallowing difficulties. No abdominal pain. No jaundice. No hematemesis, melena or rectal bleeding. GENITOURINARY: No hematuria or dysuria. MUSCULOSKELETAL: She has pain in her right knee, and the patient is going to have knee replacement on 05 October 2018. NEUROLOGICAL: No tingling or numbness in the hands or feet. No headaches or convulsions. HEMATOLOGIC/LYMPHATIC: No bleeding or easy bruising. No weakness or fatigue. No enlarged lymph nodes. SKIN: No skin rash or lumps. PSYCHIATRIC: No anxiety or depression. PHYSICAL EXAMINATION GENERAL: Looks stable. Well-developed, well-nourished, and in no acute distress. VITAL SIGNS: Blood pressure 137/66, pulse 109 per minute, respirations 16 per minute, temperature 99.4, pulse ox 93% on room air. HEENT: Head: Atraumatic. No sinus tenderness to palpation. Eyes: No icterus or conjunctivitis. Mouth and throat: No oral thrush or mucositis. NECK: Supple. No cervical or supraclavicular lymphadenopathy. LUNGS: Clear to auscultation and percussion bilaterally. HEART: Regular rate and rhythm. No gallops, murmurs, clicks or rubs. ABDOMEN: Soft and lax. No tenderness. No hepatosplenomegaly. No masses. EXTREMITIES: No cyanosis, clubbing or edema. LYMPHATICS: No peripheral lymphadenopathy. NEUROLOGICAL: Conscious, alert and oriented times three. No focal motor or sensory deficits. PSYCHIATRIC: Mood and affect appear normal. SKIN: No skin rash, bruise or purpuric eruption. DIAGNOSTIC DATA CBC showed white count 5.9, hemoglobin 15.7, hematocrit 45.8, platelet 266,000. Chem panel is totally normal. CA27-29 is pending, but the last one was 15.9, up from 14.2. ASSESSMENT 1. Stage IA (pT1a pN0 cM0) right invasive ductal carcinoma status post wire- localization lumpectomy and right sentinel lymph node biopsy done July 27, 2014, after core needle biopsy of the right breast mass done July 17, 2014. Final pathology was positive for 0.4 cm right breast nodule, grade 1/3, with negative margins. Three sentinel lymph nodes were negative for metastasis. ER was positive, 38.3%, NM negative. HER2/kanchan was negative by immunohistochemistry. Oncotype DX testing showed recurrence score of 17, which is low risk. Patient started adjuvant hormonal therapy with tamoxifen 20 mg daily on September 01, 2014, and aromatase inhibitors were not prescribed because of the cost, and patient could not afford the rose of the drug. She is doing really very well currently, without any complaint except for hot flashes and pain in her right knee, for which the patient is going to have right knee replacement in September 2018. I am planning to continue followup. As the patient is over four years since her diagnosis, I am planning to start to see her every six months. I will check her CBC, chemistry panel, and CA27-29 with her next visit. 2. Vitamin D deficiency, on vitamin D supplement 4000 units daily. 3. Osteoarthritis of the knee. Patient is going to have right knee replacement in September 2018. 4. Osteopenia of the lumbar spine, but the left hip and femoral neck were normal. Her T-score was -1.9. Repeat DEXA scan on September 17, 2017, showed osteopenia, but the bone mineral density has increased since the previous scan. We will continue the same treatment currently. PLAN 1. Continue tamoxifen 20 mg daily. 2. Patient to return in four months with CBC, chem panel and CA 27-29. 3. Continue vitamin D 4000 units daily. 4. Patient to contact us for any new concerns or complaints. ROCIO
== END 2018-09-27 15:01 | disposition home or self-care (01) ==
LOC: SPU 09:45
PROVIDERS: ATTEND Internal Medicine Hematology
DX: C50.911 Malignant neoplasm of unspecified site of right female breast (principal); Z79.810 Long term (current) use of selective estrogen receptor modulators (SERMs); Z17.0 Estrogen receptor positive status [ER+]; E55.9 Vitamin D deficiency, unspecified; M17.11 Unilateral primary osteoarthritis, right knee; M85.88 Other specified disorders of bone density and structure, other site; F17.210 Nicotine dependence, cigarettes, uncomplicated
CPT/HCPCS: 36415; 81001; 83036; 84443; 85025; 86300; 86850; 86900; 86901; 93005; G0463; 82040; 82247; 82310; 82374; 82435; 82565; 82947; 84075; 84132; 84155; 84295; 84450; 84460; 84520; 99212

== ENCOUNTER → 2018-09-09 | Outpatient (CLI) | payer MEDICARE, OTHER ==
--- NOTE | 2018-09-09 10:37 | EKG ---
FACILITY: [facility] [place] PATIENT NAME: NEO VELIZ : [id number] MR: [id number] V: [id number] EXAM DATE: ORDERING PHYSICIAN: YAZAN SOLORZANO TECHNOLOGIST: CHERI Gonzales Reason : PREOP-KNEE Blood Pressure : / mmHG Vent. Rate : 088 BPM Atrial Rate : 088 BPM P-R Int : 164 ms QRS Dur : 090 ms QT Int : 364 ms P-R-T Axes : 072 076 055 degrees QTc Int : 440 ms Normal sinus rhythm Possible Left atrial enlargement Low voltage QRS Borderline ECG When compared with ECG of 20-AUG-2016 13:57, Previous ECG has undetermined rhythm, needs review Confirmed by SHELBY ROMANO ([id number]) on 09/09/2018 3:23:55 PM Referred By: JEANINE Confirmed By:SHELBY ROMANO
== END ==
LOC: LAB 10:04
PROVIDERS: ATTEND Orthopaedic Surgery
DX: Z01.812 Encounter for preprocedural laboratory examination (principal); Z01.810 Encounter for preprocedural cardiovascular examination; I10 Essential (primary) hypertension; E03.9 Hypothyroidism, unspecified
CPT/HCPCS: 36415; 81001; 83036; 84443; 86850; 86900; 86901; 93005

== ENCOUNTER 2018-10-05 00:47 | Observation (INO) | payer MEDICARE, OTHER ==
[2018-10-04 14:36] LABS: INR 0.93
[~2018-10-05] VITALS: Ht 165.1 cm; Wt 76.4 kg
[2018-10-05] VITALS (13 sets, daily range): BP systolic 106–141; BP diastolic 58–81
[2018-10-05] MEDS ORDERED: LIDOCAINE MPF 1% 5 ML VIAL ONE (09:22)
[2018-10-05] MEDS ORDERED: PROPOFOL EMUL(*) 10MG/ML 20 ML 20 ML ONE (09:22)
[2018-10-05] MEDS ORDERED: DEXAMETHASONE SOD 4 MG/ML VIAL ONE (09:22)
[2018-10-05] MEDS ORDERED: ONDANSETRON 4 MG/2 ML VIAL ONE (09:22)
[2018-10-05] MEDS ORDERED: fentaNYL CITR 100 MCG/2 ML AMP ONE (09:23)
[2018-10-05] MEDS ORDERED: KETAMINE HCL 200 MG/20 ML MDV ONE (09:25)
[2018-10-05] MEDS ORDERED: TRANEXAMIC AC 1000 MG/10ML SDV 1,000 MG in DEXTROSE 5% 50 ML BAG 50 ML IV ONE (09:45)
[2018-10-05] MEDS ORDERED: BACITRACIN 50000 UNIT/VIAL 50,000 UNIT in NS 0.9% IRRIG(*) 1000ML PLCT 1,000 ML IR PRN (09:45)
[2018-10-05] MEDS ORDERED: MIDAZOLAM 2 MG/2 ML VIAL IVP PRN (09:45)
[2018-10-05] MEDS ORDERED: ACETAMINOPHEN 500 MG TAB PO ONE (09:45)
[2018-10-05] MEDS ORDERED: ceFAZolin(*) 2GM/D5W 50ML 50 ML IVPB ONE (09:45)
[2018-10-05] MEDS ORDERED: PREGABALIN 150 MG CAPSULE PO ONE (09:45)
[2018-10-05] MEDS ORDERED: LIDOCAINE/SOD BICARB 8.4% SYR ID ONE (09:45)
[2018-10-05] MEDS ORDERED: BACITRACIN 50000 UNIT/VIAL 100,000 UNIT in NS 0.9% 3000 ML IRRIGATION BAG 3,000 ML IR ONE (09:45)
[2018-10-05] MEDS ORDERED: FAMOTIDINE 20 MG TAB PO ONE (09:45)
[2018-10-05] MEDS ORDERED: CELECOXIB 200 MG CAP PO ONE (09:45)
[2018-10-05] MEDS ORDERED: NORMOSOL R SOLN(*) 1000 ML BAG 1,000 ML IV PRN (09:45)
[2018-10-05] MEDS ORDERED: ROPIVACAINE/EPI/CLONIDINE/KET 50 ML SYRINGE INJ ONE (09:45)
[2018-10-05] MEDS ORDERED: ePHEDrine 25 MG/5 ML DISP.SYR IVP ONE (12:01)
[2018-10-05] MEDS ORDERED: FLUSH 10 ML SYR IVP PRN (13:50)
[2018-10-05] MEDS ORDERED: LR 1000 ML BAG 1000 ML IV PRN (13:50)
[2018-10-05] MEDS ORDERED: MAGNESIUM HYDROXIDE* 30ML UDCP PO PRN (13:50)
[2018-10-05] MEDS ORDERED: diphenhydrAMINE 50 MG/ML VIAL IVP PRN (13:50)
[2018-10-05] MEDS ORDERED: ONDANSETRON 4 MG/2 ML VIAL IVP PRN (13:50)
[2018-10-05] MEDS ORDERED: PROMETHAZINE 25 MG/ML 1 ML AMP IVP PRN (13:50)
[2018-10-05] MEDS ORDERED: MAGNESIUM CITRATE 300 ML BTL PO PRN (13:50)
[2018-10-05] MEDS ORDERED: ZOLPIDEM TARTRATE 5 MG TAB PO PRN (13:50)
[2018-10-05] MEDS ORDERED: HYDROmorphone HCL 2 MG/ML SDV IVP PRN (13:50)
[2018-10-05] MEDS ORDERED: BISACODYL 10 MG SUPP PR PRN (13:50)
[2018-10-05] MEDS ORDERED: diphenhydrAMINE 25 MG CAP PO PRN (13:50)
--- NOTE | 2018-10-05 13:56 | OPERATIVE REPORT 1 ---
EVENT DATE: October 05, 2018 SURGEON: Darwin Caro MD ANESTHESIOLOGIST: Dillan Wynn MD ANESTHESIA: General plus spinal. FLOORWORKER LASTING: Evert Aguero PA-C PREOPERATIVE DIAGNOSIS Right knee medial compartment osteoarthritis. POSTOPERATIVE DIAGNOSIS Right knee medial compartment osteoarthritis. PROCEDURE PERFORMED Right unicompartment medial knee arthroplasty. FINDINGS The patient had a significant amount of arthritic changes associated with the medial side. ESTIMATED BLOOD LOSS About 20 mL. DRAINS None. COMPLICATIONS None. TOURNIQUET TIME 57 minutes but was let down prior to final closure to make sure there was no signs of major bleeding. IMPLANTS USED Dufur Unicompartmental knee arthroplasty with a medium femur, a size B tibial tray and a 3 mm bearing. SPECIMENS None. INDICATIONS AND HISTORY This patient is a 67-year-old female who presented my clinic for evaluation of knee pain and irritation going on for some time. She had known medial compartment arthritis that had responded to injections, but then when those stopped working, she wanted to go ahead with the knee arthroplasty. We talked about doing a uni versus a total knee arthroplasty since the majority of her problems are on the medial side and there was only a little bit of patellofemoral arthritis and therefore she wanted to go ahead with this today 10/05/2018. The risk and benefits were discussed with the patient and informed consent was obtained at the last clinic visit. She understood there was no guarantee and she may need to be converted to a total at another time. DESCRIPTION OF PROCEDURE As the patient was brought in the operating room, she and the procedure were both verified. She was given a spinal by Anesthesia and then placed supine on the operative table and then induced and intubated by Anesthesia. The right lower extremity was then prepped and draped in the usual fashion and a timeout was observed verifying the correct patient and procedure. The standard incision was made over the anterior aspect of the knee just slightly towards the medial side after inflation of the tourniquet. It was taken through the skin and subcutaneous tissue until I got down to the medial parapatellar approach. Once I was able to get down to the medial parapatellar approach, I was able to open that up and then resect the medial meniscus as well as a little bit of the patellar fat pad. I then identified the ACL and PCL and made for sure that the ACL was intact and then was able to take a little bit more of the posterior medial meniscus. I then was able to size the tibia to a medium and then using the extramedullary tibial guide, I was then able to cut the proximal tibia without any major difficulty. I cut right next to the insertion of the ACL and then right across it per the normal guidelines. Once I did this, I then was able to address the femur where I was able to put an intramedullary spike down the femur itself after drilling the entry hole. I was then able to use the size 4 cutting block and then pinned it in place using the standard aspects of the Dufur partial knee. This was then followed by drilling the proximal and middle holes and then putting in the standard 0 peg in. Once I put the 0 peg in, I was then able to ream standardly without any difficulty. I then put on the trial tibial tray as well as a trial femur. The 3 fit okay in the flexion part, but did not fit great in the extension part and so therefore we put in the 2 spicket and then was able to ream it down and then this allowed the 3 to fit on both positions without any difficulty. I then took out the posterior osteophytes of the femur with the cutting guide and then reamed over the top of this. This was then followed by drilling holes into the area in order to make it amenable for the cementation and also removed a lot of the osteophytes off this area. I then turned my attention to the proximal tibia where I was able to use the tibial cutting guide tray in order to use the tooth-brush saw to cut into the tibial aspect and then used the tibial trial system without any major issues. I then trialed the 3 poly and this had good stability and motion associated with it and so therefore these were the final components chosen. I then irrigated with copious amounts of saline, used the pain cocktail in the knee itself. This was then followed by irrigation again and then cementing in the components. We then left the [address] while the cement hardened in order to give it compression on this area. I then trialed the 3 once again and there was no signs of problems, so therefore I put in the 3 poly without any difficulty and everything looked good with flexion and extension, internal and external rotation of the tibia, as well as varus and valgus stress. I then irrigated again, used the Irrisept which I had throughout the case. This was then followed by closure of the medial parapatellar approach and the capsule with a #2 Quil. This was then followed by 2-0 Vicryl in the fat layer and then a 2-0 Stratafix in the subcutaneous tissue. I then put in a 4-0 Monocryl through the skin and the put a Bioclusive dressing over the top. She was then wrapped in an ben wrap. The tourniquet was let down after 57 minutes during the case and then we made sure to cauterize all bleeders and made sure there was no signs of arterial bleeding and then was able to dress it with the ben wrap and then she was awakened, extubated and transferred to the PACU in stable condition. ROCIO
--- NOTE | 2018-10-05 14:42 | RADIOLOGY IMAGING REPORT ---
FACILITY: [facility] [place] PATIENT NAME: Melina Ceballos : 1950 MR: [id number] V: [id number] EXAM DATE: ORDERING PHYSICIAN: YAZAN SOLORZANO TECHNOLOGIST: Location: [facility] Patient: Melina Ceballos : 1950 Visit/Account:[id number] Date of Sevice: 10/05/2018 KNEE LIMITED RIGHT Indication: VERIFY PLACEMENT OF PROSTHESIS Comparison: None. Findings: There are postoperative changes from a right knee hemiarthroplasty. There is moderate narr owing with osteophyte formation of the lateral compartment. There is soft tissue changes from recent surgery. IMPRESSION: New postoperative changes from a right knee hemiarthroplasty. Hardware appears in good a lignment. Report Dictated By: Naeem Seymour at 10/05/2018 2:37 PM Report E-Signed By: Naeem Seymour at 10/05/2018 2:38 PM WSN:[email or web address]
[2018-10-05] MEDS: oxyCODON/ACET (*)5/325MG (CII) 1 TAB TAB PO PRN ×3 (15:06→23:38)
--- NOTE | 2018-10-05 15:25 | Hospitalist Consultation ---
History of Present Illness Requesting Physician Dr. Caro Reason for Consult Medical Management of Comorbidities Chief Complaint s/p right knee hemiarthroplasty History of Present Illness She was admitted s/p right knee unicompartmental replacement. It is reported the surgery went well and without complication. History Problems: (1) Hypertension Status: Chronic (2) Hyperlipidemia Status: Chronic (3) Breast cancer, right Status: Chronic Home Meds Active Scripts Simvastatin (SIMVASTATIN) 40 Mg Tablet, 1 TAB PO QDAY, #90 TAB Prov:DAVE RYAN MD 07/26/18 Ramipril (RAMIPRIL) 10 Mg Capsule, 10 MG PO QDAY, #90 CAPSULE 3 Refills Prov:DAVE RYAN MD 12/22/17 Potassium Citrate (POTASSIUM CITRATE) 540 Mg Tabcr, 1620 MG PO DAILY, #270 TAB 3 Refills Prov:DAVE RYAN MD 10/26/17 Tamoxifen Citrate (TAMOXIFEN CITRATE) 20 Mg Tablet, 20 MG PO DAILY, #30 TAB 11 Refills Prov:SHANNON CASH CLINICAL TRIALS NURSE-BC, ONC 05/25/17 Reported Medications Cholecalciferol (Vitamin D3) (VITAMIN D) 1,000 Unit Tablet, 2000 UNIT PO BID 11/11/16 Glucosamine Sulfate 2KCL (GLUCOSAMINE) Unknown Strength Tablet, 1000 PO BID 11/11/16 Aspirin (ASPIRIN) 81 Mg Tab.chew, 81 MG PO BID, TAB.CHEW 11/11/16 Allergies: Uncoded Allergies: HAYFEVER (Allergy, Mild, SNEEZING, RUNNY NOSE, 08/15/11) garlic (Adverse Reaction, Intermediate, DIARRHEA, 06/20/14) onion (Adverse Reaction, Intermediate, DIARRHEA, 06/20/14) SOME ADHESIVES (Adverse Reaction, Mild, SKIN REACTION, 02/14/09) Patient History: FH: [place] (myocardial infarction) FATHER, , Age:72 FH: breast cancer BROTHER OR SISTER FH: diabetes mellitus MOTHER, , Age:82 FH: liver cancer MOTHER, , Age:82 FH: renal failure FATHER, , Age:72 FH: stroke MOTHER, , Age:82 FHx: lymphoma BROTHER OR SISTER, Osteoarthritis MOTHER, , Age:82 Hx Smoking: Yes (1/2 PPD) Smoking Status: Current: Every Day Smoker Exposure to Second Hand Smoke?: Yes Caffeine Intake: Soda Caffeine/Cups Per Day: 2 SODAS PER DAY Hx Alcohol Use: No Hx Substance Use Disorder: No Social Drug Use: Never Review of Systems All Systems Reviewed/Normal: Yes, Except as Noted Exam Vital Signs Vital Signs Date Time Temp Pulse Resp B/P (MAP) Pulse Ox O2 Delivery O2 Flow Rate FiO2 10/05/18 14:40 98.0 74 12 111/68 (82) 91 Nasal Cannula 3.0 General Appearance: Alert, Awake, No Acute Distress, Afebrile Cardiovascular: Regular Rate and Rhythm Respiratory: No Respiratory Distress, Clear to Auscultation GI: Abd Soft and Non-Tender Psych: Alert & Oriented X3, Appropriate Mood & Affect Assessment and Plan Problems: (1) S/P right unicompartmental knee replacement Status: Acute Assessment & Plan: Followed by Dr. Caro. She will be placed on Aspirin for DVT prophylaxis. (2) Hypertension Status: Chronic Assessment & Plan: Continue chronic ramipril with hold parameters. (3) Hyperlipidemia Status: Chronic Assessment & Plan: Continue chronic simvastatin. (4) Breast cancer, right Status: Chronic Assessment & Plan: Continue chronic Tamoxifen. Patient was advised of increased risk of blood clot with Tamoxifen. She verbalized understanding and would like to resume medication by Thursday. Venous Thromboembolism Antithrombotics Is Pt On Any Antithrombotics?: No Problem Qualifiers (1) Hypertension: Hypertension type: essential hypertension Qualified Codes: I10 - Essential (primary) hypertension NEFTALI SMITHP Oct 05, 2018 15:25
--- NOTE | 2018-10-05 17:00 | NUR ---
Physical Therapy Impression PT tazal completed. Pt tolerated bed mobility with modified indep and ambulation to/from BR with FWW and CGA. Pt demos step-through gait pattern with no c/o pain. Pt would benefit from further therapy to address safety with stairs and crutch trng, as pt states that she plans to utilize crutches in her home environment. Recommend out pt PT upon d/c when medically appropriate. O2 did decrease to 76% on room air with activity but improved to 88% with a few deep breaths. Pt encouraged to use inspirometer and was placed back on supplemental O2 in room prior to PT's departure. Physical Therapy Goals 1. Pt to be modified indep with bed mob and supine to/from sit 2. Pt to be modified indep with sit to/from stand with crutches 3. Pt to ambulate x 100' with least restrictive device and SBA/Mod indep 4. Pt to jordyn up/down step with crutch and no rail with SBA/CGA for safety Patient's Goals
[2018-10-05] MEDS: ceFAZolin(*) 1 GM VIAL 1 GM in NS(*) 0.9% 100 ML MINI-BAG 100 ML IVPB SCH (19:50)
[2018-10-05] MEDS ORDERED: RAMIPRIL 2.5 MG CAP PO SCH (21:00)
[2018-10-05] MEDS ORDERED: ASPIRIN 325 MG TAB PO SCH (21:00)
[2018-10-06 03:14] VITALS: BP 107/65
[2018-10-06] MEDS: ceFAZolin(*) 1 GM VIAL 1 GM in NS(*) 0.9% 100 ML MINI-BAG 100 ML IVPB SCH ×2 (03:23→11:16)
[2018-10-06] MEDS: oxyCODON/ACET (*)5/325MG (CII) 1 TAB TAB PO PRN ×2 (06:03→10:14)
[2018-10-06 07:06] VITALS: BP 102/57
[2018-10-06] MEDS ORDERED: OXYC-865 PO (07:57)
--- NOTE | 2018-10-06 08:33 | NUR ---
Physical Therapy Impression Patient instructed in gait training with FWW and axillary crutches both x 200 feet with cuing to slow down with both AD for safety. Patient initially was taking to large a step but with cuing was able to modify. Patient was mod I with FWW but needed CGA for crutches for safety. Patient ascended and descended 1 platform step with both AD x 2 reps each with safe technique. Patient was safe with both AD and would be safe to ambulate with both. Patient was shown exercises and performed them x 5 reps each. Patient was Mod I for all transfers. Patient has met all goals and is ready to d/c to OP PT. Physical Therapy Goals 1. Pt to be modified indep with bed mob and supine to/from sit 2. Pt to be modified indep with sit to/from stand with crutches 3. Pt to ambulate x 100' with least restrictive device and SBA/Mod indep 4. Pt to jordyn up/down step with crutch and no rail with SBA/CGA for safety Patient's Goals
[2018-10-06] MEDS ORDERED: SIMVASTATIN 40 MG TAB PO SCH (09:00)
--- NOTE | 2018-10-06 09:56 | NUR ---
Pt going home today. Reports she takes Zocor in the evening @ home - will instruct to take tonight.
[2018-10-06] MEDS ORDERED: ASPI-757 PO (10:25)
[2018-10-06] MEDS ORDERED: TAMO20TA24 PO (10:25)
[2018-10-06] MEDS ORDERED: RAMI10CA9 PO (10:25)
[2018-10-06 11:11] VITALS: BP 127/73
--- NOTE | 2018-10-06 11:24 | Hospitalist Progress Note ---
Subjective Progress Notes Subjective She was admitted s/p knee surgery. She had no acute events overnight. Patient Complains of: Cardiovascular: No: Chest Pain Respiratory: No: Shortness of Breath Physical Exam Vital Signs Date Time Temp Pulse Resp B/P (MAP) Pulse Ox O2 Delivery O2 Flow Rate FiO2 10/06/18 11:11 98.5 87 16 127/73 (91) 92 Nasal Cannula 3.0 Intake and Output 10/06/18 01:00 Intake Total 2000 ml Balance 2000 ml Intake Oral 300 ml IV Total 1700 ml # Voids 3 General Appearance: Alert, Awake, No Acute Distress, Afebrile Cardiovascular: Regular Rate and Rhythm Respiratory: No Respiratory Distress, Clear to Auscultation GI: Soft and Non-Tender Psych: Alert & Oriented X3, Appropriate Mood & Affect Result Diagram: 10/06/18 0613 Assessment and Plan Problems: (1) S/P right unicompartmental knee replacement Status: Acute Assessment & Plan: Followed by Dr. Caro. She will be placed on Aspirin for DVT prophylaxis. (2) Hypertension Status: Chronic Assessment & Plan: Continue chronic ramipril with hold parameters. She will hold medication for two days secondary to lower blood pressure, then resume. (3) Hyperlipidemia Status: Chronic Assessment & Plan: Continue chronic simvastatin. (4) Breast cancer, right Status: Chronic Assessment & Plan: Continue chronic Tamoxifen. Patient was advised of increased risk of blood clot with Tamoxifen. She was encouraged to hold medication for one week. She verbalized understanding. Exam Sepsis Risk: No Definite Risk Problem Qualifiers (1) Hypertension: Hypertension type: essential hypertension Qualified Codes: I10 - Essential (primary) hypertension NEFTALI SMITH [employer] Oct 06, 2018 11:24
[2018-10-06 12:15] VITALS: Ht 165.1 cm; Wt 76.4 kg
== END 2018-10-06 07:56 | disposition home or self-care (01) ==
LOC: OR 00:47 → MED 14:35
PROVIDERS: ADMIT Orthopaedic Surgery; ATTEND Orthopaedic Surgery
DX: M17.11 Unilateral primary osteoarthritis, right knee (principal); I10 Essential (primary) hypertension; E78.5 Hyperlipidemia, unspecified; C50.911 Malignant neoplasm of unspecified site of right female breast
CPT/HCPCS: 27446; 36415; 73560; 85014; 85018; 85610; 86850; 86900; 86901; 97116; 97161; 97530; A9270; C1713; C1776; G0378; J0690; J1100; J2001; J2250; J2405; J2704; J3010; J3490; J7060